=== PATIENT | male | born 1995 | race Caucasian/White ===

== ENCOUNTER 2017-12-08 09:30 | Outpatient (RCR) | payer OTHER ==
[2017-11-22 12:23] VITALS: BP 122/82
--- NOTE | 2017-11-24 12:48 | NUR ---
Patients mother states she will be doing wound care and dressing change on Wednesdays. And he will come to wound care on Monday and Fridays.
[~2017-12-08] VITALS: Ht 157.5 cm; Wt 59.0 kg
== END 2017-12-08 10:00 | disposition home or self-care (01) | DRG 592 ==
LOC: OPWC 09:30
PROVIDERS: ATTEND Internal Medicine
DX: L89.893 Pressure ulcer of other site, stage 3 (principal); Z48.00 Encounter for change or removal of nonsurgical wound dressing
CPT/HCPCS: G0463

== ENCOUNTER 2017-12-11 11:40 | Outpatient (RCR) | payer OTHER ==
[~2017-12-11] VITALS: Ht 157.5 cm; Wt 59.0 kg
== END 2017-12-11 12:40 | disposition home or self-care (01) | DRG 592 ==
LOC: OPWC 11:40
PROVIDERS: ATTEND Internal Medicine
DX: L89.893 Pressure ulcer of other site, stage 3 (principal); Z48.00 Encounter for change or removal of nonsurgical wound dressing
CPT/HCPCS: G0463

== ENCOUNTER → 2018-05-15 | Outpatient (REF) | payer OTHER | END | disposition home or self-care (01) | DRG 594 | LOC: LABSPEC 17:12 | PROVIDERS: ATTEND Surgery | DX: L97.912 Non-pressure chronic ulcer of unspecified part of right lower leg with fat layer exposed (principal); B96.4 Proteus (mirabilis) (morganii) as the cause of diseases classified elsewhere ==

== ENCOUNTER 2020-06-17 | Emergency (ER) | payer OTHER ==
[~2020-06-17] MED LIST: FERRAPLUS 90 PO; FOLIC ACID1 MG PO; MACRODANTIN50 MG PO
[2020-06-17 19:58] LABS: HEMATOCRIT 27.3 % (39.0-50.0); HEMOGLOBIN 7.8 g/dl (14.0-18.0); IMMATURE GRANULOCYTES 1.4 % (0.0-5.0); MEAN CELL VOLUME 79.6 fL CALC (80.0-100.0); MEAN CORPUSCULAR HGB 22.7 pG CALC (26.0-32.0); MEAN CORPUSCULAR HGB CONC 28.6 g/dL CAL (32.0-36.0); NEUT# 15.46 thou/uL (1.82-7.42); RED BLOOD COUNT 3.43 mill/uL (4.70-6.10); RED CELL DISTRI WIDTH 20.4 % (11.5-15.5)
[2020-06-17] MEDS ORDERED: CIPROFLOXACN500 MG PO (20:10)
[2020-06-17 20:11] LABS: ALBUMIN 2.4 g/dL (3.2-5.0); ALKALINE PHOSPHATASE 66 u/l (38-126); ANION GAP 11 (6-22 (CALC)); BILIRUBIN, TOTAL 0.6 mg/dL (0.0-1.4); BUN 9 mg/dL (9-20); BUN/CREATININE RATIO 15 (12-20 (CALC)); CARBON DIOXIDE 26 mmol/l (22-30); CHLORIDE 98 mmol/l (95-108); CPK 158 u/l (52-200); CREATININE 0.6 mg/dL (0.7-1.3); GFR > 60 ML/MIN (>=60 (CALC)); GFR FOR AFR.AMER. > 60 ML/MIN (>=60 (CALC)); MAGNESIUM 1.9 mg/dL (1.6-2.3); POTASSIUM 4.2 mmol/l (3.5-5.1); SGOT/AST 23 u/l (17-59); SODIUM 131 mmol/l (137-146); TOTAL PROTEIN 5.7 g/dL (6.3-8.2)
[2020-06-17] MEDS ORDERED: METRONIDAZOLE500 MG PO (20:11)
[2020-06-17 20:18] LABS: ACT PARTIAL THROMBO TIME 28.8 SECONDS (20.0-32.5); INTERNATIONAL NORMALIZED RATIO 1.2 RATIO (0.7-1.3); PROTHROMBIN TIME 11.9 SECONDS (9.0-12.5)
== END 2020-06-17 22:05 | disposition short-term general hospital (02) ==
PROVIDERS: Family Medicine
DX: L89.153 Pressure ulcer of sacral region, stage 3 (principal); Q05.4 Unspecified spina bifida with hydrocephalus; G82.20 Paraplegia, unspecified; K21.9 Gastro-esophageal reflux disease without esophagitis; M48.00 Spinal stenosis, site unspecified; M54.10 Radiculopathy, site unspecified; L97.819 Non-pressure chronic ulcer of other part of right lower leg with unspecified severity